=== PATIENT | female | born 1945 | race Caucasian/White ===

== ENCOUNTER 2017-05-27 11:51 | Inpatient (IN) | payer MEDICARE ==
[2017-05-27] MEDS ORDERED: ROCEPHIN 1 Gm-D5w 50 ml Bag** 1 G/50 ML IVPB IV STA (12:15)
[2017-05-27] MEDS ORDERED: PROVENTIL 2.5 MG/3 ML NEB IH ONE ×2 (12:15→12:33)
--- NOTE | 2017-05-27 12:15 | ERPHSYRPT ---
- History of Present Illness Time Seen by Provider: 05/27/17 12:09 Source: patient Exam Limitations: no limitations Patient Subjective Stated Complaint: cough, saw PMD on Tuesday and placed on zpak and steroid shot but not getting better Triage Nursing Assessment: c/o non-productive cough, chills at home, not getting better since getting meds and steroids Physician History: The patient is a 71-year-old female with family complaining of a non-improving cough for one week. 3 days ago she saw a local care provider was given a Z-Moise and a steroid shot. She has lung cancer that is being treated currently with chemotherapy. She called her oncologist who wants her to be seen in the emergency room today because she is not getting better. She denies fever or chills. Her cough is dry. She did not receive an influenza vaccine this year. Her past medical history is significant for lung cancer that is currently being treated with chemotherapy, hypertension. Timing/Duration: week(s) (1) Cough Quality/Degree: moderate, dry cough Possible Cause: occasional episodes Modifying Factors: Improves With: nothing Associated Symptoms: cough, No shortness of breath Allergies/Adverse Reactions: sodium pentathol Allergy (Uncoded 07/02/16 12:13) Home Medications: Lorazepam 0.5 mg [Ativan 0.5 MG] 1 mg PO Q4HPRN PRN 11/16/13 [History] Amlodipine Besylate 5 mg [Norvasc 5 mg] 5 mg PO DAILY 03/17/16 [History] Metoprolol Succinate 25 mg PO DAILY 03/17/16 [History] Hx Tetanus, Diphtheria Vaccination/Date Given: Yes Hx Influenza Vaccination/Date Given: No Hx Pneumococcal Vaccination/Date Given: No Immunizations Up to Date: Yes - Review of Systems Constitutional: No Fever, No Chills Eyes: No Symptoms Ears, Nose, & Throat: No Symptoms Respiratory: Cough Cardiac: No Chest Pain, No Edema, No Syncope Abdominal/Gastrointestinal: No Abdominal Pain, No Nausea, No Vomiting, No Diarrhea Genitourinary Symptoms: No Dysuria Musculoskeletal: No Back Pain, No Neck Pain Skin: No Rash Neurological: No Dizziness, No Focal Weakness, No Sensory Changes Psychological: No Symptoms Endocrine: No Symptoms Hematologic/Lymphatic: No Symptoms Immunological/Allergic: No Symptoms All Other Systems: Reviewed and Negative - Past Medical History Pertinent Past Medical History: Yes Neurological History: No Pertinent History ENT History: No Pertinent History Cardiac History: High Cholesterol, Hypertension Respiratory History: Lung Cancer Endocrine Medical History: No Pertinent History Musculoskeletal History: Fibromyalgia GI Medical History: Gallbladder Disease History: No Pertinent History Psycho-Social History: Anxiety Female Reproductive Disorders: No Pertinent History Other Medical History: vertigo, currently receving chemo and radiation - Past Surgical History Past Surgical History: Yes Neuro Surgical History: No Pertinent History Cardiac: No Pertinent History Respiratory: No Pertinent History Gastrointestinal: Cholecystectomy Genitourinary: No Pertinent History Musculoskeletal: Orthopedic Surgery Female Surgical History: Tubal Ligation Other Surgical History: NECK AND KNEEs. Fatty tumor from back removed - Social History Smoking Status: Former smoker How long have you smoked: 30 Exposure to second hand smoke: No Drug Use: none Patient Lives Alone: No - Female History Hx Now: No - Nursing Vital Signs Nursing Vital Signs: Initial Vital Signs Temperature 98.2 F 05/27/17 11:56 Pulse Rate 90 05/27/17 11:56 Respiratory Rate 22 05/27/17 11:56 Blood Pressure 132/79 05/27/17 11:56 O2 Sat by Pulse Oximetry 97 05/27/17 11:56 Pain Scale Pain Intensity 6 - Physical Exam General Appearance: no apparent distress, alert Eye Exam: PERRL/EOMI, eyes nml inspection Ears, Nose, Throat Exam: normal ENT inspection, TMs normal, pharynx normal, moist mucous membranes Neck Exam: normal inspection, non-tender, supple, full range of motion Respiratory Exam: normal breath sounds, lungs clear, No respiratory distress Cardiovascular Exam: regular rate/rhythm, normal heart sounds Gastrointestinal/Abdomen Exam: soft, No tenderness Pelvic Exam: not done Rectal Exam: not done Back Exam: normal inspection, No CVA tenderness, No vertebral tenderness Extremity Exam: normal inspection, normal range of motion Neurologic Exam: alert, oriented x 3, cooperative, normal mood/affect, sensation nml, No motor deficits Skin Exam: normal color, warm, dry, No rash Lymphatic Exam: No adenopathy SpO2 Interpretation: normal SpO2: 97 Oxygen Delivery: Room Air - Radiology Exams Chest X-ray Interpretation: Interpreted by me, Infiltrates (right middle lung. com CXR 02/04/16.) Ordered Tests: Active Orders 24 hr Category Date Time Status IV Insertion STAT Care 05/27/17 12:15 Active Pulse Oximetry (ED) STAT Care 05/27/17 12:15 Active CHEST 2 VIEWS (PA AND LAT) Stat Exams 05/27/17 12:16 Taken CBC W DIFF Stat Lab 05/27/17 13:08 Completed CMP Stat Lab 05/27/17 13:08 Completed Respiratory Nebulizer STAT RT 05/27/17 12:17 Active Medication Summary Discontinued Medications Generic Name Dose Route Start Last Admin Trade Name Gayle PRN Reason Stop Dose Admin Albuterol Sulfate 2.5 mg 05/27/17 12:15 05/27/17 12:34 Proventil 2.5 Mg/3 Ml Neb IH 05/27/17 12:16 2.5 mg STAT ONE Administration Albuterol Sulfate Confirm 05/27/17 12:33 Proventil 2.5 Mg/3 Ml Neb Administered 05/27/17 12:34 Dose 2.5 mg IH .STK-MED ONE Ceftriaxone Sodium/Dextrose 1 g in 50 mls @ 100 mls/hr 05/27/17 12:15 12:48 Rocephin 1 Gm-D5w 50 Ml Bag IV 05/27/17 12:44 100 mls/hr STAT STA Administration Ceftriaxone Sodium/Dextrose Confirm 05/27/17 12:26 Rocephin 1 Gm-D5w 50 Ml Bag Administered 05/27/17 12:27 Dose 1 g in 50 mls @ ud IV .STK-MED ONE Ondansetron HCl 4 mg 05/27/17 13:01 05/27/17 13:05 Zofran 4 Mg/2 Ml Vial IV 05/27/17 13:02 4 mg STAT ONE Administration Ondansetron HCl Confirm 05/27/17 13:02 Zofran 4 Mg/2 Ml Vial Administered 05/27/17 13:03 Dose 4 mg .ROUTE .STK-MED ONE Lab/Rad Data: Laboratory Result Diagrams 05/27/17 13:08 05/27/17 13:08 Laboratory Results 05/27/17 05/27/17 Range/Units 13:08 13:08 WBC 6.0 (4.0-10.5) K/mm3 RBC 4.64 (4.1-5.4) M/mm3 Hgb 11.8 L (12.0-16.0) gm/dl Hct 38.7 (35-47) % MCV 83.4 (78-100) fl MCH 25.4 L (26-32) pg MCHC 30.5 L (32-36) g/dl RDW 16.0 H (11.5-14.0) % Plt Count 341 (150-450) K/mm3 MPV 9.2 (6-9.5) fl Gran % 64.9 (36.0-66.0) % Lymphocytes % 20.9 L (24.0-44.0) % Monocytes % 12.9 H (0.0-12.0) % Eosinophils % 0.8 (0.00-5.0) % Basophils % 0.5 (0.0-0.4) % Basophils # 0.03 (0-0.4) Sodium 142 (136-145) mEq/L Potassium 3.8 (3.5-5.1) mEq/L Chloride 104 (98-107) mEq/L Carbon Dioxide 25.2 (21-32) mEq/L Anion Gap 16.4 H (5-15) MEQ/L BUN 16 (9-20) mg/dL Creatinine 0.89 (0.55-1.30) mg/dl Estimated GFR > 60 ML/MIN Glucose 115 H (70-110) MG/DL Calcium 9.1 (8.5-10.1) mg/dL Total Bilirubin 0.20 (0.2-1.0) mg/dL AST 21 (15-37) U/L ALT 15 (12-78) U/L Alkaline Phosphatase 76 (46-116) U/L Serum Total Protein 7.4 (6.4-8.2) gm/dL Albumin 3.3 L (3.4-5.0) g/dL - Progress Progress: improved Air Movement: good Antibiotics given: Yes Counseled pt/family regarding: lab results, diagnosis, need for follow-up, rad results - Departure Time of Disposition: 14:12 Departure Disposition: Home Clinical Impression: Cough Condition: Stable Critical Care Time: No Referrals: MISSY VOGEL [Primary Care Provider] - Additional Instructions: You have a small infiltrate in the right middle lung seen on the chest x-ray. You were given Rocephin 1 g and Zofran 4 mg by IV in the ER. Take prednisone 60 mg daily for 3 days. Take azithromycin for 5 days as directed. Call your oncologist and follow-up on Tuesday. Prescriptions: Azithromycin 250 mg [Zithromax 250 MG TABLET] 250 mg PO ZPACK #6 tablet Prednisone 10 mg [Deltasone 10 mg] 60 mg PO DAILY #18 tablet
[2017-05-27] MEDS ORDERED: ROCEPHIN 1 Gm-D5w 50 ml Bag** 1 G/50 ML IVPB IV ONE (12:26)
[2017-05-27] MEDS ORDERED: Zofran 4 MG/2 ML VIAL IV ONE (13:01)
[2017-05-27] MEDS ORDERED: Zofran 4 MG/2 ML VIAL ONE (13:02)
[2017-05-27 13:10] LABS: BASOPHIL % 0.5 % (0.0-0.4); Eosinophil % 0.8 % (0.00-5.0); Granulocytes % 64.9 % (36.0-66.0); Lymphocytes % 20.9 % (24.0-44.0); Mean Cell Volume 83.4 fl (78-100); Mean Corpuscular Hemoglobin 25.4 pg (26-32); Mean Platelet Volume 9.2 fl (6-9.5); Monocytes % 12.9 % (0.0-12.0); Platelet Count 341 K/mm3 (150-450); Red Blood Count 4.64 M/mm3 (4.1-5.4)
[2017-05-27 13:36] LABS: ALBUMIN 3.3 g/dL (3.4-5.0); ALKALINE PHOSPHATASE 76 U/L (46-116); ANION GAP 16.4 MEQ/L (5-15); BLOOD UREA NITROGEN 16 mg/dL (9-20); CHLORIDE 104 mEq/L (98-107); Carbon Dioxide 25.2 mEq/L (21-32); Glucose 115 MG/DL (70-110); Potassium 3.8 mEq/L (3.5-5.1); SGOT/AST 21 U/L (15-37); SGPT/ALT 15 U/L (12-78); SODIUM 142 mEq/L (136-145); Total Protein 7.4 gm/dL (6.4-8.2)
--- NOTE | 2017-05-27 14:57 | XRAY ---
Indication: Cough. History lung cancer with chemotherapy. Comparison: July 02, 2016. PA/lateral chest again hyperinflated with new CT proven superior mediastinal lymphadenopathy and left-sided Port-A-Cath. Remaining heart, lungs, and bony thorax unremarkable.
[2017-05-27] MEDS ORDERED: TYLENOL 325 MG PO PRN (15:18)
[2017-05-27] MEDS: Sodium Chloride 0.9% 1000 ML 1,000 ML IV SCH (15:40)
[2017-05-27] MEDS: Tamiflu 75MG Capsule PO SCH (15:41)
[2017-05-27] MEDS ORDERED: PROCHLORPERAZINE MALEATE 10 MG PO PRN (15:45)
[2017-05-27] MEDS: DILAUDID 2 MG INJECTION IV PRN (16:17)
[2017-05-27] MEDS: PROVENTIL 2.5 MG/3 ML NEB IH SCH ×2 (17:57→21:09)
[2017-05-27] MEDS: Ativan 0.5 MG PO SCH (21:14)
[2017-05-28] MEDS: PROVENTIL 2.5 MG/3 ML NEB IH SCH (01:45)
[2017-05-28] MEDS: DUONEB 0.5-3 MG/3 ml Neb IH PRN ×4 (02:07→20:00)
[2017-05-28] MEDS: DILAUDID 2 MG INJECTION IV PRN ×3 (02:46→19:56)
[2017-05-28 05:48] LABS: BASOPHIL % 0.2 % (0.0-0.4); Granulocytes % 67.1 % (36.0-66.0); Lymphocytes % 19.3 % (24.0-44.0); Mean Cell Volume 84.2 fl (78-100); Mean Corpuscular Hemoglobin 25.7 pg (26-32); Mean Platelet Volume 9.5 fl (6-9.5); Monocytes % 12.4 % (0.0-12.0); Platelet Count 266 K/mm3 (150-450); Red Blood Count 3.85 M/mm3 (4.1-5.4); White Blood Count 5.2 K/mm3 (4.0-10.5)
[2017-05-28 06:10] LABS: ANION GAP 12.1 MEQ/L (5-15); BLOOD UREA NITROGEN 12 mg/dL (9-20); CHLORIDE 111 mEq/L (98-107); Carbon Dioxide 24.6 mEq/L (21-32); Glucose 93 MG/DL (70-110); Potassium 3.6 mEq/L (3.5-5.1); SODIUM 144 mEq/L (136-145)
[2017-05-28] MEDS: ROCEPHIN 1 Gm-D5w 50 ml Bag** 1 G/50 ML IVPB IV SCH (09:15)
[2017-05-28] MEDS: Ativan 0.5 MG PO SCH ×3 (09:15→21:18)
[2017-05-28] MEDS: Tamiflu 75MG Capsule PO SCH ×2 (09:15→21:19)
[2017-05-28] MEDS: Zofran 4 MG/2 ML VIAL IV PRN ×2 (09:18→19:49)
[2017-05-28] MEDS: Zithromax 500 MG/ 250 ML NaCl Premix 500 MG/250 ML IVPB IV SCH (10:04)
[2017-05-28] MEDS: Sodium Chloride 0.9% 1000 ML 1,000 ML IV SCH (14:01)
[2017-05-28] MEDS: Compazine 5 MG PO PRN (21:18)
[2017-05-29] MEDS: Sodium Chloride 0.9% 1000 ML 1,000 ML IV SCH ×3 (00:03→22:04)
[2017-05-29] MEDS: DILAUDID 2 MG INJECTION IV PRN ×5 (02:22→23:41)
[2017-05-29] MEDS: Compazine 5 MG PO PRN ×2 (07:42→17:06)
[2017-05-29] MEDS: DUONEB 0.5-3 MG/3 ml Neb IH PRN ×3 (07:56→19:26)
[2017-05-29] MEDS: ROCEPHIN 1 Gm-D5w 50 ml Bag** 1 G/50 ML IVPB IV SCH (10:03)
[2017-05-29] MEDS: Tamiflu 75MG Capsule PO SCH ×2 (10:04→21:56)
[2017-05-29] MEDS: Ativan 0.5 MG PO SCH ×3 (10:04→21:56)
--- NOTE | 2017-05-29 10:33 | PCM.NOTE ---
Date and Time: 05/29/17 1028 Subjective Assessment: Her daughter and are at the bedside. She vomited last night according to her daughter and nurses notes. Her daughter reports she did eat more but that she at a lot of sweets yesterday before she vomited. She has not had much production in her cough. They are concerned that she does not seem to be getting much better yet and is still very fatigued and not taking much fluid. - Review of Systems Constitutional: No Symptoms Eyes: No Symptoms Ears, Nose, & Throat: No Symptoms Respiratory: Cough, Wheezing Cardiac: No Symptoms Abdominal/Gastrointestinal: Vomiting, No Nausea, No Diarrhea, No Constipation Genitourinary Symptoms: No Symptoms Musculoskeletal: No Symptoms Skin: No Symptoms Objective Exam General Appearance: no apparent distress, alert Neurologic Exam: alert, cooperative, normal mood/affect Skin Exam: normal color, warm, dry Respiratory Exam: normal breath sounds, lungs clear, airway intact, other (+ cough), No respiratory distress, No crackles/rales, No rhonchi, No wheezing Cardiovascular Exam: regular rate/rhythm, normal heart sounds, No murmur, No friction rub, No gallop Gastrointestinal/Abdomen Exam: soft, normal bowel sounds, No tenderness, No distention, No mass, No guarding Extremity Exam: normal inspection, other (no c/c/e) OBJECTIVE DATA Vital Signs: Vital Signs - 24 hr Temp Pulse Resp BP Pulse Ox 05/29/17 08:23 70 20 94 L 05/29/17 07:57 70 20 94 L 05/29/17 07:08 98.2 F 70 18 130/66 97 05/29/17 05:28 99.3 F 71 17 130/64 92 L 05/29/17 00:00 16 05/28/17 23:29 99.6 F 73 16 119/63 94 L 05/28/17 20:00 74 18 94 L 05/28/17 19:50 98.8 F 78 18 137/62 96 05/28/17 16:00 98.8 F 83 20 174/58 93 L 05/28/17 14:55 71 20 93 L 05/28/17 11:43 20 05/28/17 11:39 98.5 F 105 H 20 124/60 96 Pain Assessment - Last Documented Pain Intensity 6 Pain Scale Used 0-10 Pain Scale Intake and Output: Intake & Output 05/27/17 05/28/17 05/29/17 05/30/17 06:59 06:59 06:59 06:59 Intake Total 440 4973 Output Total 900 Balance 440 4073 Weight 48.081 kg Radiology Exams: Radiology Procedures Category Date Time Status CHEST 2 VIEWS (PA AND LAT) Routine Exams 05/29/17 Ordered Assessment/Plan (1) Influenza A Current Visit: Yes Status: Acute Assessment & Plan: Continue Tamiflu. Continue supportive care. She is on oxygen 2 L by nasal cannula now. Will start incentive spirometry. Discussed that Influenza A is difficult to recover from and she was already in poor health when she became sick with Influenza A. Code(s): J10.1 - FLU DUE TO OTH IDENT INFLUENZA VIRUS W OTH RESP MANIFEST (2) Pneumonia Current Visit: Yes Status: Acute Assessment & Plan: The radiologist over read her chest X-ray as no infiltrate. Will continue to treat clinically for pneumonia and recheck her chest X-ray today. Continue ceftriaxone and azithromycin. Code(s): J18.9 - PNEUMONIA, UNSPECIFIED ORGANISM (3) Lung cancer Current Visit: Yes Status: Acute Assessment & Plan: Continue follow up after discharge with her oncologist. Nursing order written yesterday for Dr. Carver to be made aware of her admission here. Code(s): C34.90 - MALIGNANT NEOPLASM OF UNSP PART OF UNSP BRONCHUS OR LUNG
[2017-05-29] MEDS: Zithromax 500 MG/ 250 ML NaCl Premix 500 MG/250 ML IVPB IV SCH (12:14)
[2017-05-29] MEDS: Zofran 4 MG/2 ML VIAL IV PRN (13:53)
--- NOTE | 2017-05-29 21:57 | XRAY ---
Indication: Cough. Comparison: May 27, 2017. PA/lateral chest demonstrates developing tiny bibasilar effusions. Remaining chest unchanged again with CT proven superior mediastinal lymphadenopathy, paratracheal atelectasis/scarring, and left-sided Port-A-Cath. Comment: Preliminary interpretation was made by [facility]. No discrepancy.
[2017-05-30] MEDS: Sodium Chloride 0.9% 1000 ML 1,000 ML IV SCH ×2 (08:16→20:21)
--- NOTE | 2017-05-30 09:10 | PCM.NOTE ---
Date and Time: 05/30/17905 Subjective Assessment: Pt still having cough, was on 2L O2 yesterday but currently off of oxygen. She is not having production of mucous although she is trying. Tolerating some PO but very decreased appetite. - Review of Systems Constitutional: Weakness, No Fever Respiratory: Cough Objective Exam General Appearance: no apparent distress, alert Neurologic Exam: oriented x 3, cooperative Skin Exam: warm, dry, No rash Eye Exam: eyes nml inspection Ears, Nose, Throat Exam: moist mucous membranes Respiratory Exam: diminished breath sounds (good air exchange), crackles/rales ( RLL), No rhonchi, No wheezing Cardiovascular Exam: regular rate/rhythm, normal heart sounds, No murmur Extremity Exam: No pedal edema, No swelling OBJECTIVE DATA Vital Signs: Vital Signs - 24 hr Temp Pulse Resp BP Pulse Ox 05/30/17 07:48 98.2 F 77 20 116/60 99 05/30/17 07:12 98 F 05/30/17 04:25 99.0 F 71 18 131/70 99 05/30/17 04:00 18 05/30/17 00:00 18 05/29/17 23:00 98.8 F 63 18 141/69 99 05/29/17 20:00 20 05/29/17 19:46 77 20 98 05/29/17 19:20 98.6 F 77 20 143/67 98 05/29/17 15:16 74 18 136/65 95 05/29/17 13:10 96 H 20 96 05/29/17 12:25 98.4 F 74 20 127/58 96 Oxygen-Last 24 hours O2 Percentage 2 Liters = 28% O2 Percentage 2 Liters = 28% O2 Percentage 2 Liters = 28% O2 Percentage 2 Liters = 28% O2 Percentage 1 Liter = 24% O2 Percentage 2 Liters = 28% Pain Assessment - Last Documented Pain Intensity 3 Pain Scale Used 0-10 Pain Scale Intake and Output: Intake & Output 05/27/17 05/28/17 05/29/17 05/30/17 11:59 11:59 11:59 11:59 Intake Total 2689 Output Total 2450 Balance 239 Assessment/Plan (1) Influenza A Current Visit: Yes Status: Acute Assessment & Plan: She is improved. On Tamiflu. If she can tolerate being off her oxygen today, may be able to d/c home today or tomorrow. Would like to see if she needs O2 overnight. Code(s): J10.1 - FLU DUE TO OTH IDENT INFLUENZA VIRUS W OTH RESP MANIFEST (2) Pneumonia Current Visit: Yes Status: Acute Qualifiers: Pneumonia type: due to unspecified organism Laterality: unspecified laterality Lung location: unspecified part of lung Qualified Code(s): J18.9 - Pneumonia, unspecified organism Assessment & Plan: Treating for pneumonia clinically. Unable to produce sputum. Remain on IV antibiotics. Add mucinex prn. Code(s): J18.9 - PNEUMONIA, UNSPECIFIED ORGANISM (3) Lung cancer Current Visit: Yes Status: Acute Qualifiers: Laterality: unspecified laterality Lung location: unspecified part of lung Qualified Code(s): C34.90 - Malignant neoplasm of unspecified part of unspecified bronchus or lung Assessment & Plan: Supposed to get treatment with DR. Carver in 2d - he needs to be notified that pt is here. Code(s): C34.90 - MALIGNANT NEOPLASM OF UNSP PART OF UNSP BRONCHUS OR LUNG
[2017-05-30] MEDS: Tamiflu 75MG Capsule PO SCH ×2 (09:20→22:33)
[2017-05-30] MEDS: ROCEPHIN 1 Gm-D5w 50 ml Bag** 1 G/50 ML IVPB IV SCH (09:20)
[2017-05-30] MEDS: Ativan 0.5 MG PO SCH ×3 (09:20→22:32)
[2017-05-30] MEDS: BENADRYL 25 MG CAPSULE PO PRN (09:20)
[2017-05-30] MEDS: Zofran 4 MG/2 ML VIAL IV PRN (09:34)
[2017-05-30] MEDS: Zithromax 500 MG/ 250 ML NaCl Premix 500 MG/250 ML IVPB IV SCH (10:21)
--- NOTE | 2017-05-30 10:39 | HP ---
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 Her daughter and are at the bedside. The patient and the family reported that she just generally was not feeling well for the past week and started to have fever. She had a little bit of a cough. She has been undergoing treatment with neotherapy for metastatic small cell lung cancer and she was not sure if this was making her feeling bad or something else. They do report she saw Erin on 05/24/2017 and was diagnosed with bronchitis and started on Z-Moise and given a shot of Cel[place] and was told that if she was not better by Tuesday to be seen somewhere which is what they did. In the emergency department, the patient was found to have a right middle lobe pneumonia as well as positive for influenza A so it was thought due to the influenza A being positive that she should be admitted to the hospital for evaluation and treatment. The patient reports she does not feel much better today than she did yesterday. She still feels weak and tired. She still has a cough. She has not had much of an appetite at baseline her family reports. REVIEW OF SYSTEMS: No nausea or vomiting. No abdominal pain. No lower extremity edema. No rashes. She has had cough, fever, generalized fatigue, body ache otherwise the review of systems is negative. PAST MEDICAL HISTORY: Small cell lung cancer stage IV according to our clinic chart, this was documented October 2016. It looks like she had a lymph node biopsy in July 2016 that revealed metastatic cancer. Fibromyalgia, anxiety. PAST SURGICAL HISTORY: Cholecystectomy. A fatty tumor removed from her back. Tubal ligation. Knee surgery. MEDICATIONS: Hydrocodone/acetaminophen 5/325 mg 1 tablet p.o. every four hours PRN pain which she states her oncologist prescribes. Lorazepam 1 mg p.o. t.i.d. PRN anxiety, Compazine 10 mg p.o. every four hours as needed. ALLERGIES: SODIUM PENTATHOL. SOCIAL HISTORY: She is and lives with her . She has a history of smoking but does not smoke currently. FAMILY HISTORY: Noncontributory. PHYSICAL EXAMINATION: VITAL SIGNS: Temperature current 98.5F, temperature max 99.9F, heart rate 69 to 105, respiratory rate 18 to 20, blood pressure 90 to 124 over 43 to 60, weight 48 kg. Oxygen saturation 96 to 97% on room air. GENERAL: The patient is lying in bed in no acute distress with her family members at the bedside. CVS: She has a regular rate and rhythm. No murmurs, gallops or rubs are appreciated. CHEST: Clear to auscultation bilaterally. No crackles or wheezes. ABDOMEN: Soft, nontender, nondistended with normal bowel sounds. EXTREMITIES: No clubbing, cyanosis or edema. SKIN: Warm, dry and intact. LABORATORY DATA AND TESTS: Her white blood cell count was normal on admission and repeat was normal today. Hemoglobin 9.9 today, PLT count normal. Influenza A was positive. Influenza B and respiratory syncytial virus were negative. She has a sputum culture ordered. Chest x-ray read by the radiologist said no infiltrate, hyperinflated lungs and superior mediastinal lymphadenopathy and left-sided Port-A-Cath. The emergency room read a right middle lobe infiltrate. ASSESSMENT AND PLAN: 1) INFLUENZA A: She was started on Tamiflu due to her multiple medical problems and immunosuppression from her chemotherapy. 2) PNEUMONIA: Will continue with ceftriaxone and azithromycin at this time. 3) HISTORY OF LUNG CANCER: I will ask the nurses to notify her oncologist if she is still here on Tuesday.
[2017-05-30] MEDS: DUONEB 0.5-3 MG/3 ml Neb IH PRN (11:30)
[2017-05-30] MEDS: DILAUDID 2 MG INJECTION IV PRN (12:29)
[2017-05-30] MEDS: Robitussin 100 MG/5 ML PO PRN ×2 (16:21→20:22)
[2017-05-30] MEDS: NORCO 5/325 MG PO PRN (20:23)
[2017-05-31] MEDS: Robitussin 100 MG/5 ML PO PRN (01:07)
[2017-05-31] MEDS: DUONEB 0.5-3 MG/3 ml Neb IH PRN ×2 (01:11→07:53)
[2017-05-31] MEDS: BENADRYL 25 MG CAPSULE PO PRN ×2 (03:21→12:09)
[2017-05-31] MEDS: Sodium Chloride 0.9% 1000 ML 1,000 ML IV SCH (06:32)
[2017-05-31 07:05] VITALS: O2SAT 95
--- NOTE | 2017-05-31 08:36 | PCM.DS ---
Discharge Summary Date of Admission: 05/29/17 13:11 Admitting Physician: ISAMAR JIMENEZ Primary Care Provider: MISSY VOGEL Allergies Allergies sodium pentathol Allergy (Uncoded 07/02/16 12:13) Hospital Summary - Hospital Course Hospital Course: Pt admitted with influenza A and pneumonia. Has steadily improved; was on O2 per NC intermittently. Last night was off the O2 with recorded O2 sats all 92% and up. She has been getting nebs QID. On IV antibiotics. Will send her home on nebs and antibiotics. Her exam is benign today. She is tolerating po. F/u with PCP in 1 wk. - Vitals & Intake/Output Vital Signs: Vital Signs Temperature 98.4 F 05/31/17 07:04 Pulse Rate 66 05/31/17 07:57 Respiratory Rate 20 05/31/17 07:57 Blood Pressure 131/62 05/31/17 07:04 O2 Sat by Pulse Oximetry 95 05/31/17 07:57 Oxygen-Last Documented O2 Percentage 2 Liters = 28% Intake & Output: Intake & Output 05/28/17 05/29/17 05/30/17 05/31/17 11:59 11:59 11:59 11:59 Intake Total 2689 1790 Output Total 2450 1400 Balance 239 390 - Lab Result Diagrams: 05/28/17 05:20 05/28/17 05:20 - Procedures and Test Procedures and Tests throughout Hospitalization: Therapy Orders & Screens 05/30/17 09:04 PT Eval & Treat ( Order) ROUTINE Evaluate: Yes Treat: Yes Reason for Eval:: Deconditioning Diagnosis: INFLUENZA A, PNEUMONIA Discharge Exam General Appearance: no apparent distress, alert, other (receiving breathing tx) Neurologic Exam: oriented x 3, cooperative Skin Exam: normal color, warm, dry Respiratory Exam: normal breath sounds, lungs clear, No crackles/rales, No rhonchi, No wheezing Cardiovascular Exam: regular rate/rhythm, normal heart sounds, No murmur Extremity Exam: No pedal edema, No swelling Back Exam: normal inspection, No rash Final Diagnosis/Problem List - Final Discharge Diagnosis/Problem (1) Influenza A Current Visit: Yes Status: Acute Assessment & Plan: Finish Tamiflu 75mg po BID x 5d total (tomorrow should be the last day). (2) Pneumonia Current Visit: Yes Status: Acute Assessment & Plan: Home to finish 5d of IV antibiotics. (3) Lung cancer Current Visit: Yes Status: Acute - Discharge Disposition: Home, Self-Care Condition: Stable Prescriptions: New Albuterol 2.5 mg/3 ml Neb [Proventil 2.5 mg/3 ml Neb] 2.5 mg IH QID # 30 neb Cefdinir 300 mg [Omnicef 300 mg] 300 mg PO BID #12 capsule Oseltamivir 75 mg [Tamiflu 75MG Capsule] 75 mg PO BID #2 cap Continue Lorazepam 0.5 mg [Ativan 0.5 MG] 1 mg PO TID Hydrocodone Bit/Acetaminophen [[place] 5-325 Tablet] 1 each PO Q4HPRN PRN PRN Reason: Pain Prochlorperazine Maleate [Compazine] 10 mg PO Q4H PRN PRN PRN Reason: Nausea Additional Instructions: You have a small infiltrate in the right middle lung seen on the chest x-ray. You were given Rocephin 1 g and Zofran 4 mg by IV in the ER. Take prednisone 60 mg daily for 3 days. Take azithromycin for 5 days as directed. Call your oncologist and follow-up on Tuesday. Follow up with: ISAMAR JIMENEZ [ACTIVE STAFF] - 06/07/17 10:45 am
[2017-05-31] MEDS: Tamiflu 75MG Capsule PO SCH (10:00)
[2017-05-31] MEDS: Ativan 0.5 MG PO SCH (10:00)
[2017-05-31] MEDS: Zithromax 500 MG/ 250 ML NaCl Premix 500 MG/250 ML IVPB IV SCH (10:01)
[2017-05-31] MEDS: ROCEPHIN 1 Gm-D5w 50 ml Bag** 1 G/50 ML IVPB IV SCH (10:01)
[2017-05-31 11:26] VITALS: BP 128/60; PULSE 62
[2017-05-31] MEDS: NORCO 5/325 MG PO PRN (12:09)
== END 2017-05-31 12:35 | disposition home or self-care (01) | DRG 194 ==
LOC: ED 11:51 → MED SURG 14:59 → OBSVTOIN 05-29 13:11
PROVIDERS: ADMIT Family Medicine; ATTEND Family Medicine
DX: J10.00 Influenza due to other identified influenza virus with unspecified type of pneumonia (principal); C34.90 Malignant neoplasm of unspecified part of unspecified bronchus or lung; M79.7 Fibromyalgia; F41.9 Anxiety disorder, unspecified
CPT/HCPCS: 36000; 36415; 71020; 80048; 80053; 85025; 87631; 94640; 94760; 94762; 96365; 96374; 99283; 99285; G0378; J0456; J0696; J1170; J1642; J2405; A9270-GY

== ENCOUNTER 2018-01-07 18:20 | Emergency (ER) | payer MEDICARE ==
[2018-01-07] MEDS ORDERED: Sodium Chloride 0.9% 1000 ML 1,000 ML IV SCH (18:45)
[2018-01-07] MEDS ORDERED: Zofran 4 MG/2 ML VIAL IV ONE (18:46)
[2018-01-07] MEDS ORDERED: Zofran 4 MG/2 ML VIAL ONE (18:47)
[2018-01-07] MEDS ORDERED: Sodium Chloride 0.9% 1000 ML 1,000 ML ONE (18:47)
[2018-01-07] MEDS ORDERED: Hydromorphone 1 mg/ml Ampule IV ONE (19:18)
[2018-01-07] MEDS ORDERED: DILAUDID 2 MG INJECTION ONE (19:23)
--- NOTE | 2018-01-07 19:24 | ERPHSYRPT ---
- History of Present Illness Time Seen by Provider: 01/07/18 19:12 Historian: patient, family Exam Limitations: no limitations Patient Subjective Stated Complaint: Pain all over, hx of lymphoma, vomiting. Triage Nursing Assessment: Pt presents to the ED with complaints of pain all over that began approximately a week ago. Pt states she was told to come to ED by oncologist due to pain. Pt states there is nothing that makes pain better or worse. [place] at 1500 Physician History: 72 y/o female with history of NSCLC with lymph node involvement near the liver currently on topotecan and RT comes to the ER with complaints of RUQ abdominal pain for the past 2 weeks. Pt just started on topotecan 3 weeks ago and RT one week ago. Pt also admits to having no energy and spends most of her time in bed. Pt had one episode of nausea and vomiting prior to arriving to the ER. Pt describes the pain as sharp, constant, 10/10, and not relieved by norco. Timing/Duration: week(s) Activities at Onset: none Quality: sharpness Abdominal Pain Onset Location: RUQ Pain Radiation: no radiation, RUQ Severity of Pain-Max: severe Severity of Pain-Current: severe Modifying Factors: Improves With: nothing Associated Symptoms: loss of appetite, nausea, vomiting Previous symptoms: same symptoms as today Allergies/Adverse Reactions: lisinopril Allergy (Mild, Verified 01/07/18 18:33) sodium pentathol Allergy (Uncoded 07/02/16 12:13) Home Medications: Hydrocodone/Acetaminophen [Hydrocodone-Acetamin 7.5-325] 1 tab PO Q4HPRN PRN 01/18 [History] LORazepam [Lorazepam] 1 mg PO BIDPRN PRN 01/07/18 [History] PANTOPRAZOLE 40 mg Tablet [Protonix 40MG Tablet] 40 mg PO QAM 01/07/18 [ History] Prochlorperazine Maleate 10 mg PO DAILY 01/07/18 [History] Hx Tetanus, Diphtheria Vaccination/Date Given: No Hx Influenza Vaccination/Date Given: No Hx Pneumococcal Vaccination/Date Given: No Immunizations Up to Date: No - Review of Systems Constitutional: Lethargy, Weakness, No Fever, No Chills Eyes: No Symptoms Ears, Nose, & Throat: No Symptoms Respiratory: No Cough, No Dyspnea Cardiac: No Chest Pain, No Edema, No Syncope Abdominal/Gastrointestinal: Abdominal Pain, Nausea, Vomiting, No Diarrhea Genitourinary Symptoms: No Dysuria Musculoskeletal: No Back Pain, No Neck Pain Skin: No Rash Neurological: No Dizziness, No Focal Weakness, No Sensory Changes Psychological: No Symptoms Endocrine: No Symptoms All Other Systems: Reviewed and Negative - Past Medical History Pertinent Past Medical History: Yes Neurological History: No Pertinent History ENT History: No Pertinent History Cardiac History: High Cholesterol Respiratory History: COPD, Lung Cancer Endocrine Medical History: No Pertinent History Musculoskeletal History: Fibromyalgia GI Medical History: Gallbladder Disease History: No Pertinent History Psycho-Social History: Anxiety Female Reproductive Disorders: No Pertinent History Other Medical History: vertigo - Past Surgical History Past Surgical History: Yes Neuro Surgical History: No Pertinent History Cardiac: No Pertinent History Respiratory: No Pertinent History Gastrointestinal: Cholecystectomy Genitourinary: No Pertinent History Musculoskeletal: Orthopedic Surgery Female Surgical History: Tubal Ligation Other Surgical History: NECK AND miniscus KNEEs. Fatty tumor from back removed - Social History Smoking Status: Former smoker How long have you smoked: 30 Exposure to second hand smoke: No Drug Use: none Patient Lives Alone: No - Female History Hx Now: No - Nursing Vital Signs Nursing Vital Signs: Initial Vital Signs Temperature 99.2 F 01/07/18 18:28 Pulse Rate 131 H 01/07/18 18:28 Respiratory Rate 14 01/07/18 18:28 Blood Pressure 140/66 01/07/18 18:28 O2 Sat by Pulse Oximetry 92 L 01/07/18 18:28 Pain Scale Pain Intensity [Pain] 10 Pain Intensity 4 - Physical Exam General Appearance: no apparent distress, alert Eye Exam: PERRL/EOMI, pale conjunctivae Ears, Nose, Throat Exam: normal ENT inspection, pharynx normal, moist mucous membranes Neck Exam: normal inspection, non-tender, supple, full range of motion Respiratory Exam: normal breath sounds, lungs clear, No respiratory distress Cardiovascular Exam: regular rate/rhythm, normal heart sounds, tachycardia Gastrointestinal/Abdomen Exam: soft, normal bowel sounds, tenderness, No distention, No mass Back Exam: normal inspection, normal range of motion, No CVA tenderness, No vertebral tenderness Extremity Exam: normal inspection, normal range of motion, pelvis stable Neurologic Exam: alert, oriented x 3, cooperative, normal mood/affect, nml cerebellar function, sensation nml, No motor deficits Skin Exam: normal color, warm, dry SpO2: 92 Oxygen Delivery: Nasal Cannula - Course Nursing assessment & vital signs reviewed: Yes EKG Interpreted by Me: RATE, NORMAL AXIS, NORMAL INTERVALS, NORMAL QRS Ordered Tests: Active Orders 24 hr Category Date Time Status Machine Ii Cutter STAT Care 01/07/18 18:45 Active EKG-ER Only STAT Care 01/07/18 18:45 Active IV Insertion STAT Care 01/07/18 18:45 Active Oxygen-ED Only NASAL CANNULA 2 lpm Care 01/07/18 18:45 Active ABDOMEN AND PELVIS W CONTRAST [CT] Stat Exams 01/07/18 19:18 Taken CHEST 1 VIEW (PORTABLE) Stat Exams 01/07/18 19:19 Taken AMYLASE Stat Lab 01/07/18 18:40 Completed CBC W DIFF Stat Lab 01/07/18 18:40 Completed CMP Stat Lab 01/07/18 18:40 Completed LIPASE Stat Lab 01/07/18 18:40 Completed Lactic Acid Stat Lab 01/07/18 19:40 Completed PROTIME WITH INR Stat Lab 01/07/18 18:40 Completed PTT Stat Lab 01/07/18 18:40 Completed UA W/RFX UR CULTURE Stat Lab 01/07/18 20:45 Completed Medication Summary Generic Name Dose Route Start Last Admin Trade Name Freq PRN Reason Stop Dose Admin Sodium Chloride 1,000 mls @ 100 mls/hr 01/07/18 18:45 01/07/18 18:52 Sodium Chloride 0.9% 1000 Ml IV 02/06/18 18:44 100 mls/hr .Q10H ALISHA Administration Discontinued Medications Generic Name Dose Route Start Last Admin Trade Name Freq PRN Reason Stop Dose Admin Hydromorphone HCl 1 mg 01/07/18 19:18 01/07/18 19:26 Hydromorphone 1 Mg/Ml Ampule IV 01/07/18 19:19 1 mg STAT ONE Administration Hydromorphone HCl Confirm 01/07/18 19:23 Dilaudid 2 Mg Injection Administered 01/07/18 19:24 Dose 2 mg .ROUTE .STK-MED ONE Ondansetron HCl 4 mg 01/07/18 18:46 01/07/18 18:52 Zofran 4 Mg/2 Ml Vial IV 01/07/18 18:47 4 mg STAT ONE Administration Ondansetron HCl Confirm 01/07/18 18:47 Zofran 4 Mg/2 Ml Vial Administered 01/07/18 18:48 Dose 4 mg .ROUTE .STK-MED ONE Lab/Rad Data: Laboratory Result Diagrams 01/07/18 18:40 01/07/18 18:40 Laboratory Results 01/07/18 01/07/18 01/07/18 Range/Units 20:45 19:40 18:40 WBC (4.0-10.5) K/mm3 RBC (4.1-5.4) M/mm3 Hgb (12.0-16.0) gm/dl Hct (35-47) % MCV (78-100) fl MCH (26-32) pg MCHC (32-36) g/dl RDW (11.5-14.0) % Plt Count (150-450) K/mm3 MPV (6-9.5) fl Gran % (36.0-66.0) % Eos # (Auto) (0-0.5) Absolute Lymphs (auto) (1.0-4.6) Absolute Monos (auto) (0.0-1.3) Lymphocytes % (24.0-44.0) % Monocytes % (0.0-12.0) % Eosinophils % (0.00-5.0) % Basophils % (0.0-0.4) % Absolute Granulocytes (1.4-6.9) Basophils # (0-0.4) PT (9.95-12.35) SECONDS INR (0.8-3.0) APTT 34.4 (25.3-37.0) SECONDS Sodium (137-145) mmol/L Potassium (3.5-5.1) mmol/L Chloride (98-107) mmol/L Carbon Dioxide (22-30) mmol/L Anion Gap (5-15) MEQ/L BUN (7-17) mg/dL Creatinine (0.52-1.04) mg/dL Estimated GFR ML/MIN Glucose (74-106) mg/dL Lactic Acid 1.0 (0.4-2.0) Calcium (8.4-10.2) mg/dL Total Bilirubin (0.2-1.3) mg/dL AST (14-36) U/L ALT (0-35) U/L Alkaline Phosphatase (38-126) U/L Serum Total Protein (6.3-8.2) g/dL Albumin (3.5-5.0) g/dL Amylase (30-110) U/L Lipase (23-300) U/L Ur Collection Type CLEAN CATCH Urine Color YELLOW (YELLOW) Urine Appearance CLEAR (CLEAR) Urine pH 5.0 (5-6) Ur Specific [place] 1.020 (1.005-1.025) Urine Protein NEGATIVE (Negative) Urine Ketones SMALL (NEGATIVE) Urine Blood NEGATIVE (0-5) Ascencion/ul Urine Nitrite NEGATIVE (NEGATIVE) Urine Bilirubin NEGATIVE (NEGATIVE) Urine Urobilinogen NORMAL (0-1) mg/dL Ur Leukocyte Esterase NEGATIVE (NEGATIVE) Urine Culture Reflexed NO (NO) Urine Glucose NEGATIVE (NEGATIVE) mg/dL Specimen Received 01/07/18204401/07/18 01/07/18 01/07/18 Range/Units 18:40 18:40 18:40 WBC 3.5 L (4.0-10.5) K/mm3 RBC 3.87 L (4.1-5.4) M/mm3 Hgb 10.5 L (12.0-16.0) gm/dl Hct 33.2 L (35-47) % MCV 85.8 (78-100) fl MCH 27.1 (26-32) pg MCHC 31.6 L (32-36) g/dl RDW 15.9 H (11.5-14.0) % Plt Count 340 (150-450) K/mm3 MPV 9.9 H (6-9.5) fl Gran % 59.2 (36.0-66.0) % Eos # (Auto) 0.05 (0-0.5) Absolute Lymphs (auto) 0.95 L (1.0-4.6) Absolute Monos (auto) 0.42 (0.0-1.3) Lymphocytes % 27.1 (24.0-44.0) % Monocytes % 12.0 (0.0-12.0) % Eosinophils % 1.4 (0.00-5.0) % Basophils % 0.3 (0.0-0.4) % Absolute Granulocytes 2.07 (1.4-6.9) Basophils # 0.01 (0-0.4) PT 14.0 H (9.95-12.35) SECONDS INR 1.20 (0.8-3.0) APTT (25.3-37.0) SECONDS Sodium 139 (137-145) mmol/L Potassium 3.8 (3.5-5.1) mmol/L Chloride 106 (98-107) mmol/L Carbon Dioxide 25 (22-30) mmol/L Anion Gap 11.7 (5-15) MEQ/L BUN 15 (7-17) mg/dL Creatinine 0.72 (0.52-1.04) mg/dL Estimated GFR > 60.0 ML/MIN Glucose 135 H (74-106) mg/dL Lactic Acid (0.4-2.0) Calcium 8.7 (8.4-10.2) mg/dL Total Bilirubin 0.40 (0.2-1.3) mg/dL AST 47 H (14-36) U/L ALT 36 H (0-35) U/L Alkaline Phosphatase 117 (38-126) U/L Serum Total Protein 6.1 L (6.3-8.2) g/dL Albumin 3.3 L (3.5-5.0) g/dL Amylase 54 (30-110) U/L Lipase 87 (23-300) U/L Ur Collection Type Urine Color (YELLOW) Urine Appearance (CLEAR) Urine pH (5-6) Ur Specific [place] (1.005-1.025) Urine Protein (Negative) Urine Ketones (NEGATIVE) Urine Blood (0-5) Ascencion/ul Urine Nitrite (NEGATIVE) Urine Bilirubin (NEGATIVE) Urine Urobilinogen (0-1) mg/dL Ur Leukocyte Esterase (NEGATIVE) Urine Culture Reflexed (NO) Urine Glucose (NEGATIVE) mg/dL Specimen Received - Progress Progress: improved Progress Note: 01/07/18 22:27 The patient feels much better after receiving dilaudid, zofran and NS fluids. The CT scan abd/pelvis shows moderate to severe retroperitoneal adenopathy. There is a complex mass around the head of the pancreas that extends into the martine hepatis. The CXR shows scaterred infiltrates. These findings according to the patient are old chronic changes. I spoke to Dr Hurt who wants the patient to F/U with Dr Carver next week. Pt will be sent home on dilaudid 2mg PO every 6 hrs for pain. - Departure Time of Disposition: 22:32 Departure Disposition: Home Clinical Impression: Metastatic lung carcinoma Qualifiers: Laterality: right Qualified Code(s): C78.01 - Secondary malignant neoplasm of right lung Condition: Stable Critical Care Time: Yes Critical Care Time(excluding separately billable procedures): 30-74 minutes Referrals: STEPHANIE CARVER [CONSULTING PHYSICIAN] - Instructions: Lung Cancer (DC) Additional Instructions: Follow up with Dr Carver on Tuesday for additional recommendations. Stop your previous pain medications and start the following pain medication as instructed: 1) Dilaudid 2mg once every 6 hrs as needed for pain
[2018-01-07 20:03] LABS: BASOPHIL % 0.3 % (0.0-0.4); Basophil (Absolute #) 0.01 (0-0.4); Eosinophil % 1.4 % (0.00-5.0); Eosinophil (Absolute #) 0.05 (0-0.5); Granulocyte Absolute (ANC) 2.07 (1.4-6.9); Granulocytes % 59.2 % (36.0-66.0); Hematocrit 33.2 % (35-47); Hemoglobin 10.5 gm/dl (12.0-16.0); Lymphocyte (Absolute #) 0.95 (1.0-4.6); Lymphocytes % 27.1 % (24.0-44.0); Mean Cell Volume 85.8 fl (78-100); Mean Corpuscular Hemoglobin 27.1 pg (26-32); Mean Corpuscular Hgb Concent. 31.6 g/dl (32-36); Mean Platelet Volume 9.9 fl (6-9.5); Monocyte (Absolute #) 0.42 (0.0-1.3); Platelet Count 340 K/mm3 (150-450); Red Blood Count 3.87 M/mm3 (4.1-5.4); Red Cell Distribution Width 15.9 % (11.5-14.0); White Blood Count 3.5 K/mm3 (4.0-10.5)
[2018-01-07 20:19] LABS: INR 1.2 (0.8-3.0)
[2018-01-07 20:23] LABS: ALBUMIN 3.3 g/dL (3.5-5.0); ALKALINE PHOSPHATASE 117 U/L (38-126); AMYLASE 54 U/L (30-110); ANION GAP 11.7 MEQ/L (5-15); BLOOD UREA NITROGEN 15 mg/dL (7-17); CHLORIDE 106 mmol/L (98-107); Calcium 8.7 mg/dL (8.4-10.2); Carbon Dioxide 25 mmol/L (22-30); Creatinine 1 0.72 mg/dL (0.52-1.04); Glucose 135 mg/dL (74-106); LIPASE 87 U/L (23-300); Potassium 3.8 mmol/L (3.5-5.1); SGOT/AST 47 U/L (14-36); SGPT/ALT 36 U/L (0-35); SODIUM 139 mmol/L (137-145); Total Protein 6.1 g/dL (6.3-8.2)
[2018-01-07 21:00] LABS: Appearance CLEAR (CLEAR); Bilirubin NEGATIVE (NEGATIVE); Blood NEGATIVE Ery/ul (0-5); Glucose NEGATIVE (NEGATIVE); Ketones SMALL (NEGATIVE); Leukocyte Esterase NEGATIVE (NEGATIVE); Nitrite NEGATIVE (NEGATIVE); Protein,Urine Dip NEGATIVE (Negative); Urobilinogen NORMAL mg/dL (0-1)
[2018-01-07] MEDS ORDERED: Dilaudid 4 MG Tab PO ONE ×2 (22:35→23:17)
[2018-01-07] MEDS ORDERED: ZOFRAN ODT 4 MG PO ONE (22:59)
[2018-01-07] MEDS ORDERED: ZOFRAN ODT 4 MG ONE (23:01)
[2018-01-07 23:35] VITALS: BP 124/71; PULSE 84; O2SAT 94
--- NOTE | 2018-01-08 07:59 | XRAY ---
Indication: Right upper quadrant abdominal pain. Emesis and body ache. History non-small cell lung carcinoma. Multiple contiguous axial images obtained through the abdomen and pelvis using 80 cc Isovue 370 contrast only. Comparison: November 16, 2013. Lung bases demonstrates new bilateral patchy interstitial alveolar opacities and small right effusion. Also new 1.5 cm posterior right lower lobe noncalcified nodule. Heart is not enlarged. New small hiatal hernia. Noncontrasted stomach and bowel loops appear nonobstructed. Stable mild sigmoid diverticulosis without diverticulitis. Mild diffuse scattered colonic fecal debris. New bulky lymphadenopathy near the mesenteric root and martine hepatis, largest 3 x 4 cm. Also new retroperitoneal lymphadenopathy. There has been interval cholecystectomy. Stable bilateral parapelvic renal cysts. Remaining liver, pancreas, spleen, adrenal glands, kidneys, ureters, bladder, and uterus appear unremarkable. Stable heavy aortoiliac calcifications with distal abdominal aortic ectasia. Osseous structures intact again with minimal degenerative changes. No ventral or inguinal hernias Impression: 1. New mesenteric root, martine hepatis, and retroperitoneal lymphadenopathy probably metastatic. 2. New bilateral pulmonary interstitial alveolar opacities, right effusion, and right lower lobe nodule. 3. New small hiatal hernia. 4. Incidental mild fecal stasis without obstruction, sigmoid diverticulosis, and bilateral parapelvic renal cysts. Comment: Preliminary interpretation was made by [facility]. No discrepancy. CTDI 8.61
--- NOTE | 2018-01-08 08:03 | XRAY ---
Indication: Body aches and emesis. History lung carcinoma. Comparison: June 07, 2017. Portable chest demonstrates new diffuse scattered bilateral interstitial alveolar opacities and tiny right effusion. Heart is not enlarged. Stable CT proven superior mediastinal lymphadenopathy, right paratracheal atelectasis/scarring, and left Port-A-Cath. Bony thorax intact. Comment: Preliminary interpretation was made by [facility]. No discrepancy.
== END 2018-01-07 23:35 | disposition home or self-care (01) ==
LOC: ED 18:20
DX: C78.01 Secondary malignant neoplasm of right lung (principal); R10.11 Right upper quadrant pain; Z79.899 Other long term (current) drug therapy; R11.2 Nausea with vomiting, unspecified; R63.0 Anorexia
CPT/HCPCS: 36000; 36415; 71045; 74177; 80053; 81002; 82150; 83605; 83690; 85025; 85610; 85730; 93005; 93041; 96360; 96361; 96374; 96375; 99285; J1170; J2405; Q0162; A9270-GY